=== PATIENT | male | born 1990 | race African-American/Black ===

== ENCOUNTER 2016-05-07 00:15 | Emergency (ER) | payer OTHER ==
[~2016-05-07] VITALS: Ht 177.8 cm; Wt 78.9 kg
[~2016-05-07 00:15] MED LIST: CYCLOBENZAPRINE10 M1 PO; IBUPROFEN800 M1 PO; MOBIC15 M1 PO; NAPROXEN500 MG PO; RISPERDAL0.5 M1 PO; RISPERIDONE1 M1 PO
[2016-05-07 00:22] VITALS: BP 151/82
--- NOTE | 2016-05-07 00:36 | ED SKIN/ALLERGY COMPLAINT ---
History of Present Illness General Chief Complaint: General Adult Stated Complaint: "I HAVE A BUMP ON MY STOMACH" Source: patient Exam Limitations: no limitations Vital Signs & Intake/Output Vital Signs & Intake/Output Vital Signs Date Time Temp Pulse Resp B/P Pulse O2 O2 Flow FiO2 Ox Delivery Rate 05/07 0022 99.1 74 20 151/82 99 Room Air Allergies Coded Allergies: shellfish derived (ANAPHYLAXIS 05/07/16) Reconcile Medications Risperidone (Risperdal) 0.5 MG TABLET 1 TAB PO BID seizure/mental health ( Reported) Triage Note: TRIAGE: PT TO ER C/C BUMP ON STOMACH SINCE TUESDAY S/P SHAVING, ?INGROWN HAIR. PAINFUL SINCE TUESDAY. Triage Nurses Notes Reviewed? yes Onset: Gradual Duration: week(s): (1) Timing: no prior history Severity: moderate Severity Numbers: 7 Location: torso Possible Factors: SHAVING No Modifying Factors: none HPI: Patient is a 26-year-old male presenting to the emergency department with chief complaint of "I have a bump on my abdomen. Patient reports that he knows of small bump about a week ago progressively getting worse. Denies any fevers or chills nausea vomiting chest pain or shortness of breath. Pain is currently moderate worse with palpation. Denies taking anything for pain at home. He reports he does shave his abdominal area. This started after he shaved. No history of similar symptoms. (MYKE MARTINES) Past History Travel History Traveled to [place] past 21 day No Medical History Any Pertinent Medical History? 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 No (MYKE MARTINES) Review of Systems Review of Systems Constitutional: Reports: no symptoms. Comments Review of systems: See HPI, All other systems negative. Constitutional, no chills fever or weight loss HEENT: No visual changes no sore throat no congestion Cardiovascular: No chest pain ,palpitation Skin, no jaundice Respiratory: No dyspnea cough sputum or hemoptysis GI: No nausea no vomiting : No dysuria No hematuria Muscle skeletal: no back pain, no neck pain, Neurologic: No numbness Psych: No stress anxiety Immunology: No splenectomy or history of AIDS (MYKE MARTINES) Physical Exam Physical Exam General Appearance: well developed/nourished, no apparent distress, alert, awake , comfortable Comments: Well-developed well-nourished person in no acute distress HEENT: Pupils equally round and reactive to light and accommodation. Nose is atraumatic. Neck: Normal inspection Cardiovascular: Normal JVP Respiratory: No respiratory distress. Abdomen: Soft, tender to palpation in the periumbilical region over the abscess. Extremity: No edema Neuro: Alert oriented x3 Skin: Large mildly fluctuant erythematous lesion approximately 4 cm in diameter noted just distal and to the left of the umbilicus. Tender to palpation. No active discharge. Mild surrounding erythema approximately 2-3 cm. Psych: Mood and affect is normal, memory and judgment is normal. (MYKE AMRTINES) Progress Differential Diagnosis: ABSCESS, CELLULITIS, FOLLICULITIS, CARBUNCLE Plan of Care: Orders Procedure Date/time Status TRUNK AREA CULTURE 05/07 34 Active Microbiology 05/07 51 TRUNK: Culture & Sensitivity - RECD 05/07 51 TRUNK: Gram Stain - RECD Departure Departure Time of Disposition: 34 Disposition: HOME OR SELF CARE Condition: Stable Clinical Impression Primary Impression: Abscess Referrals: PATIENT HAS NO PRIMARY CARE DR (PCP/Family) Additional Instructions: Return in 2 days for wound check. Take Bactrim and amoxicillin as prescribed. Take [id number] Motrin or Tylenol as directed for any aches or pains. Return for worsening symptoms or concerns. Departure Forms: Customer Survey General Discharge Information (MYKE MARTINES) PA/BLACK MILL OPERATOR Co-Sign Statement Statement: ED Attending supervision documentation- [] I saw and evaluated the patient. I have also reviewed all the pertinent lab results and diagnostic results. I agree with the findings and the plan of care as documented in the PA's/BLACK MILL OPERATOR's documentation. [X] I have reviewed the ED Record and agree with the PA's/BLACK MILL OPERATOR's documentation. [] Additions or exceptions (if any) to the PAs/BLACK MILL OPERATOR's note and plan are summarized below: [] (KAN PALMA,MAY Kapadia) Procedures Incision and Drainage Site: ABDOMEN Blade Size: 11 I & D Procedure: Yes: betadine prep, sterile drapes applied, sterile dressing applied, wick placed. Progress: Moderate amount of thick purulent discharge expelled from abscess after I&D. Packing placed. (ALHAJI BLOOM,MYKE)
== END 2016-05-07 01:12 ==
LOC: ERH 00:15
DX: L02.211 Cutaneous abscess of abdominal wall (principal)
CPT/HCPCS: 87184; 87070; 87147

== ENCOUNTER 2016-05-09 01:20 | Emergency (ER) | payer OTHER ==
[~2016-05-09] VITALS: Ht 170.2 cm; Wt 70.3 kg
[2016-05-09 01:30] VITALS: BP 142/74
--- NOTE | 2016-05-09 01:48 | ED SKIN/ALLERGY COMPLAINT ---
History of Present Illness General Chief Complaint: Suture Removal/Wound Recheck Stated Complaint: " WOUND RECHECK" Source: patient Exam Limitations: no limitations Vital Signs & Intake/Output Vital Signs & Intake/Output Vital Signs Date Time Temp Pulse Resp B/P Pulse O2 O2 Flow FiO2 Ox Delivery Rate 05/09 0130 98.6 64 18 142/74 99 Room Air Allergies Coded Allergies: shellfish derived (ANAPHYLAXIS 05/07/16) Reconcile Medications Cephalexin (Keflex) 500 MG CAPSULE 1 CAP PO 4 TIMES/DAY ABSCESS/INFECTION X 10 DAYS Ondansetron (Zofran Odt) 4 MG TAB.RAPDIS 1 TAB SL TID PRN NAUSEA/VOMITING Risperidone (Risperdal) 0.5 MG TABLET 1 TAB PO BID seizure/mental health ( Reported) Sulfamethoxazole/Trimethoprim (Bactrim Ds Tablet) 800 MG-160 MG TABLET 1 TAB PO BID ABSCESS/INFECTION Triage Note: PT FROM HOME C/O WOUND RECHECK. PT STATES HE WAS HERE 2 DAYS AGO FOR AN ABCESS ON HIS ABD, MERLE Olivier CARED FOR PT. AWAITING PROVIDER EVAL Triage Nurses Notes Reviewed? yes Onset: Gradual Duration: day(s): Timing: recent history Severity: mild Location: abdomen Possible Factors: here for re-packing of drained abscess Associated Symptoms: mild pain with palpation HPI: 26 yo gentleman presents with an abdominal wall abscess, s/p drainage a few days ago. He presents for a wound check. He notes that he has been taking the antibiotics, which he does not recall, but vomits after he takes them. He notes that the packing is intact. He has improved pain. He is otherwise well. Past History Travel History Traveled to [place] past 21 day No Medical History Any Pertinent Medical History? 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 No Review of Systems Review of Systems Constitutional: Reports: no symptoms. EENTM: Reports: no symptoms. Respiratory: Reports: no symptoms. Cardiovascular: Reports: no symptoms. GI: Reports: no symptoms. Genitourinary: Reports: no symptoms. Musculoskeletal: Reports: no symptoms. Skin: Reports: no symptoms. Neurological/Psychological: Reports: no symptoms. Hematologic/Endocrine: Reports: no symptoms. Immunologic/Allergic: Reports: no symptoms. All Other Systems: Reviewed and Negative Physical Exam Physical Exam General Appearance: well developed/nourished, mild distress Head: atraumatic Eyes: Bilateral: normal appearance. Ears, Nose, Throat: normal ENT inspection Neck: normal inspection Respiratory: normal breath sounds Cardiovascular: regular rate/rhythm Gastrointestinal: soft, non-tender Back: normal inspection Extremities: normal inspection, normal range of motion, no edema Neurologic/Psych: awake, alert, oriented x 3, normal mood/affect Skin: sub umbilical abscess with packing in place. no mando drainage or bleeding. mildly tender to palpation. Lymphatic: no anterior cervical reshma Progress Differential Diagnosis: abscess vs other. Plan of Care: packing removed.... further pus expressed from wound... wound re-packed... dressing placed... pt will follow up in 2 days for further care. Departure Departure Disposition: HOME OR SELF CARE Condition: Stable Clinical Impression Primary Impression: Abscess Referrals: PATIENT HAS NO PRIMARY CARE DR (PCP/Family) Departure Forms: Customer Survey General Discharge Information Prescriptions: Current Visit Scripts Sulfamethoxazole/Trimethoprim (Bactrim Ds Tablet) 1 TAB PO BID #20 TAB Cephalexin (Keflex) 1 CAP PO 4 TIMES/DAY #40 CAP X 10 DAYS Ondansetron (Zofran Odt) 1 TAB SL TID PRN NAUSEA/VOMITING #20 TAB Ref 1
[2016-05-09] MEDS ORDERED: ZOFRAN ODT4 M1 SL (01:49)
[2016-05-09] MEDS ORDERED: BACTRIM DS TAB1 EACH PO (01:49)
[2016-05-09] MEDS ORDERED: KEFLEX500 M1 PO (01:49)
== END 2016-05-09 01:53 ==
LOC: ERH 01:20
DX: L02.211 Cutaneous abscess of abdominal wall (principal)